=== PATIENT | male | born 1955 | race Caucasian/White ===

== ENCOUNTER 2017-07-02 19:55 | Emergency (ER) | payer OTHER ==
[~2017-07-02 19:55] MED LIST: AMOX500 PO; ASPI325; ASPI81EC; Amoxicillin875 MG PO; BENA10; BENA20 PO; CEPH500 PO; CLIN300 PO; CLON.1 PO; HYDACE10B PO; HYDACE5 PO; HYDCHL12.5 PO; LISI20 PO; LISI5 PO; METO50; PENVK500 PO; POTCHL20ER PO; PROACE100 PO; PROC10 PO; Pepcid40 MG PO; RXHYD5325 PO; RXHYDACE PO; RXPROACE PO; SERT100; Veetids 500500 MG PO; ZESTORETIC 20-121 EA; Zofran Odt4 MG SL
== END 2017-07-02 21:22 | disposition left against medical advice (07) ==
LOC: ER 19:55
DX: Z53.21 Procedure and treatment not carried out due to patient leaving prior to being seen by health care provider (principal)

== ENCOUNTER 2017-07-05 22:51 | Emergency (ER) | payer OTHER ==
[~2017-07-05] VITALS: Ht 182.9 cm; Wt 122.5 kg
[2017-07-05] MEDS ORDERED: ACET325 PO (23:00)
[2017-07-06] MEDS ORDERED: IBUP600 PO (21:21)
== END 2017-07-05 23:37 | disposition home or self-care (01) ==
LOC: ER 22:51
DX: K08.89 Other specified disorders of teeth and supporting structures (principal); Z88.5 Allergy status to narcotic agent; Z88.2 Allergy status to sulfonamides; Z88.1 Allergy status to other antibiotic agents; Z79.899 Other long term (current) drug therapy; I10 Essential (primary) hypertension; K21.9 Gastro-esophageal reflux disease without esophagitis; Z87.891 Personal history of nicotine dependence
CPT/HCPCS: 64400; 99282

== ENCOUNTER 2017-07-06 18:31 | Emergency (ER) | payer OTHER ==
[~2017-07-06] VITALS: Ht 182.9 cm; Wt 122.5 kg
[~2017-07-06 18:31] MED LIST changes: +ACET325 PO
[2017-07-06 19:51] LABS: U Amphetamine Screen DETECTED; U Barbituate Screen Not Detected; U Benzodiazapine Screen Not Detected; U Buprenorphine Screen Not Detected; U Cannabinoids Screen DETECTED; U Cocaine Screen Not Detected; U Methadone Screen Not Detected; U Methamphetamine Screen DETECTED; U Opiates Screen Not Detected; U Oxycodone Screen Not Detected; U Phencyclidine Screen Not Detected; U Propoxyphene Screen Not Detected
[2017-07-06 20:04] LABS: BASOPHILS ABSOLUTE AUTO 0.01 K/mm3 (0.00-0.23); BASOPHILS PERCENT AUTO 0 % (0-2); EOSINOPHILS ABSOLUTE AUTO 0.01 K/mm3 (0.00-0.68); EOSINOPHILS PERCENT AUTO 0 % (0-6); Hematocrit 46.3 % (37.0-53.0); Hemoglobin 16.5 g/dL (13.5-17.5); IMMATURE GRAN ABSOLUTE AUTO 0.03 K/mm3 (0.00-0.10); IMMATURE GRAN PERCENT AUTO 0 % (0-1); LYMPHOCYTES ABSOLUTE AUTO 1.19 K/mm3 (0.84-5.20); LYMPHOCYTES PERCENT AUTO 12 % (21-46); MONOCYTES ABSOLUTE AUTO 0.63 K/mm3 (0.16-1.47); MONOCYTES PERCENT AUTO 6 % (4-13); Mean Corpuscular HGB 34.2 pg (26.0-34.0); Mean Corpuscular HGB Conc 35.6 g/dL (31.5-36.5); Mean Corpuscular Volume 96 fL (80-100); Mean Platelet Volume 10.4 fL (9.1-12.4); NEUTROPHILS ABSOLUTE AUTO 8.41 K/mm3 (1.96-9.15); NEUTROPHILS PERCENT AUTO 82 % (41-73); Platelet Count 292 K/mm3 (150-400); RDW Coefficient Variation 13.9 % (11.7-14.2); RDW Standard Deviation 48.6 fL (35.1-46.3); Red Blood Cell Count 4.83 M/mm3 (4.30-5.90); White Blood Cell Count 10.28 K/mm3 (4.00-11.30)
[2017-07-06 20:26] LABS: Troponin I <0.015 ng/mL (0.000-0.040)
[2017-07-06 20:27] LABS: Alanine Aminotransfer (ALT/SGP 19 U/L (12-78); Albumin, Blood 3.4 g/dL (3.4-5.0); Albumin/Globulin Ratio 0.7 (0.8-1.8); Alk Phos 64 U/L (50-136); Anion Gap 14 mmol/L (6-16); Aspartate Aminotrans (AST/SGOT 29 U/L (12-37); Bilirubin, Total 0.2 mg/dL (0.1-1.0); Blood Urea Nitrogen 15 mg/dL (8-24); Bun/Creatinine Ratio 12.4 (12.0-20.0); CO2, Blood 19 mmol/L (21-32); Chloride, Blood 103 mmol/L (98-108); Creatinine, Blood 1.21 mg/dL (0.60-1.20); Globulin, Blood 4.7 g/dL (2.2-4.0); Glomerular Filtration Rate >60 (60-); Glucose, Blood 116 mg/dL (70-99); Potassium, Blood 3.2 mmol/L (3.5-5.5); Sodium, Blood 136 mmol/L (136-145); Total Protein, Blood 8.1 g/dL (6.4-8.2)
[2017-07-06 20:44] LABS: Base Excess Venous -1.7 mmol/L; Bicarbonate Venous 23.5 mmol/L (24.0-30.0); PCO2 Venous 34.4 mmHg (38-42); PO2 Venous 120 mmHg (38-42); pH Blood Venous 7.43 (7.34-7.37)
[2017-07-06] MEDS ORDERED: IBUP600 PO (21:21)
== END 2017-07-06 21:40 | disposition home or self-care (01) ==
LOC: ER 18:31
PROVIDERS: Emergency Medicine
DX: R11.2 Nausea with vomiting, unspecified (principal); K04.7 Periapical abscess without sinus; F15.10 Other stimulant abuse, uncomplicated; F12.10 Cannabis abuse, uncomplicated; I10 Essential (primary) hypertension; Z88.5 Allergy status to narcotic agent; Z88.2 Allergy status to sulfonamides; Z88.1 Allergy status to other antibiotic agents; Z79.899 Other long term (current) drug therapy
CPT/HCPCS: 36415; 71046; 80053; 82803; 84484; 85025; 93005; 93010; 96365; 96375; 99284; J0696; J1200; J2765; J7030

== ENCOUNTER 2017-08-10 12:51 | Emergency (ER) | payer OTHER ==
[~2017-08-10] VITALS: Ht 177.8 cm; Wt 122.5 kg
[~2017-08-10 12:51] MED LIST changes: +IBUP600 PO
[2017-08-10] MEDS ORDERED: NYST237S MT (14:12)
[2017-08-10] MEDS ORDERED: Amoxicillin500 MG PO (14:12)
[2017-08-10] MEDS ORDERED: NAPR550 PO (14:12)
== END 2017-08-10 14:15 | disposition home or self-care (01) ==
LOC: ER 12:51
DX: K08.89 Other specified disorders of teeth and supporting structures (principal); K02.9 Dental caries, unspecified; I10 Essential (primary) hypertension; Z88.5 Allergy status to narcotic agent; Z79.899 Other long term (current) drug therapy; Z79.2 Long term (current) use of antibiotics; Z87.891 Personal history of nicotine dependence
CPT/HCPCS: 99283

== ENCOUNTER 2021-06-14 20:54 | Inpatient (IN) | payer MEDICARE, OTHER ==
[~2021-06-14] VITALS: Ht 182.9 cm; Wt 127.8 kg
[~2021-06-14 20:54] MED LIST changes: +Amoxicillin500 MG PO; +MIRALAX17 GM PO; +NAPR550 PO; +NYST237S MT; +Norco 5-325 Ta1 EACH PO
[2021-06-14 21:30] LABS: BASOPHILS ABSOLUTE AUTO 0.06 K/mm3 (0.00-0.23); BASOPHILS PERCENT AUTO 1 % (0-2); EOSINOPHILS ABSOLUTE AUTO 0.23 K/mm3 (0.00-0.68); EOSINOPHILS PERCENT AUTO 5 % (0-6); Hematocrit 43.8 % (37.0-53.0); Hemoglobin 14.9 g/dL (13.5-17.5); IMMATURE GRAN ABSOLUTE AUTO 0.02 K/mm3 (0.00-0.10); IMMATURE GRAN PERCENT AUTO 0 % (0-1); LYMPHOCYTES ABSOLUTE AUTO 2.25 K/mm3 (0.84-5.20); LYMPHOCYTES PERCENT AUTO 44 % (21-46); MONOCYTES ABSOLUTE AUTO 0.41 K/mm3 (0.16-1.47); MONOCYTES PERCENT AUTO 8 % (4-13); Mean Corpuscular HGB 35.3 pg (26.0-34.0); Mean Corpuscular Volume 104 fL (80-100); Mean Platelet Volume 9.8 fL (9.1-12.4); NEUTROPHILS ABSOLUTE AUTO 2.13 K/mm3 (1.96-9.15); NEUTROPHILS PERCENT AUTO 42 % (41-73); Platelet Count 212 K/mm3 (150-400); RDW Coefficient Variation 14.3 % (11.7-14.2); RDW Standard Deviation 54.5 fL (35.1-46.3); Red Blood Cell Count 4.22 M/mm3 (4.30-5.90)
[2021-06-14 21:50] LABS: Alanine Aminotransfer (ALT/SGP 136 U/L (12-78); Albumin, Blood 2.9 g/dL (3.4-5.0); Albumin/Globulin Ratio 0.6 (0.8-1.8); Alk Phos 79 U/L (50-136); Anion Gap 10 mmol/L (6-16); Aspartate Aminotrans (AST/SGOT 251 U/L (12-37); Bilirubin, Total 0.4 mg/dL (0.1-1.0); Blood Urea Nitrogen 13 mg/dL (8-24); Bun/Creatinine Ratio 14.2 (12.0-20.0); CO2, Blood 25 mmol/L (21-32); Calcium, Blood 8.3 mg/dL (8.5-10.1); Chloride, Blood 106 mmol/L (98-108); Creatinine, Blood 0.92 mg/dL (0.60-1.20); Globulin, Blood 4.5 g/dL (2.2-4.0); Glomerular Filtration Rate >60 (60-); Glucose, Blood 121 mg/dL (70-99); Potassium, Blood 3.7 mmol/L (3.5-5.5); Sodium, Blood 141 mmol/L (136-145); Total Protein, Blood 7.4 g/dL (6.4-8.2); Troponin I <0.015 ng/mL (0.000-0.040)
[2021-06-14 21:51] LABS: Base Excess Venous 0.3 mmol/L; Bicarbonate Venous 24.2 mmol/L (24.0-30.0); PO2 Venous 199 mmHg (38-42); pH Blood Venous 7.35 (7.34-7.37)
[2021-06-14 22:26] LABS: Influenza A, PCR NEGATIVE (NEGATIVE); Influenza B, PCR NEGATIVE (NEGATIVE); Resp Syncytial Virus, PCR NEGATIVE (NEGATIVE); SARS-Cov-2 (COVID-19) PCR, MMC NEGATIVE (NEGATIVE)
--- NOTE | 2021-06-15 03:42 | NUR ---
0300 PT ARRIVED ON UNIT FROM ER VIA STRETCHER, AMBULATED TO BED, ORIENTED TO ROOM AND CALL PRESSLEY SYSTEM, ADMISSION HISTORY LIMITED PT POOR HISTORIAN, DOES NOT KNOW WHAT MEDICATIONS HE TAKES EXCEPT THAT HE DOESNT USUALLY TAKE HIS FUROSIMIDE "BECAUSE IT MAKES ME PEE EVERY 5 MINUTES." DOES NOT KNOW DOSAGE OR WHEN LAST DOSE WAS. TELE SHOWS SR/ST, VOIDING IN URINAL AT BEDSIDE, C/O FEELING ANXIOUS, LAST TIME HE DRANK ETOH WAS JUST PRIOR TO ARRIVAL. BED ALARM ACTIVATED, BED LOCKED AND LOW, WILL CONTINUE TO MONITOR. JOSELIN BARNEY
[2021-06-15 04:45] LABS: BASOPHILS ABSOLUTE AUTO 0.03 K/mm3 (0.00-0.23); BASOPHILS PERCENT AUTO 1 % (0-2); EOSINOPHILS ABSOLUTE AUTO 0.05 K/mm3 (0.00-0.68); EOSINOPHILS PERCENT AUTO 1 % (0-6); Hematocrit 43.7 % (37.0-53.0); Hemoglobin 14.6 g/dL (13.5-17.5); IMMATURE GRAN ABSOLUTE AUTO 0.03 K/mm3 (0.00-0.10); IMMATURE GRAN PERCENT AUTO 1 % (0-1); LYMPHOCYTES ABSOLUTE AUTO 1.07 K/mm3 (0.84-5.20); LYMPHOCYTES PERCENT AUTO 24 % (21-46); MONOCYTES ABSOLUTE AUTO 0.47 K/mm3 (0.16-1.47); MONOCYTES PERCENT AUTO 10 % (4-13); Mean Corpuscular HGB 35.1 pg (26.0-34.0); Mean Corpuscular HGB Conc 33.4 g/dL (31.5-36.5); Mean Corpuscular Volume 105 fL (80-100); Mean Platelet Volume 10.1 fL (9.1-12.4); NEUTROPHILS ABSOLUTE AUTO 2.91 K/mm3 (1.96-9.15); NEUTROPHILS PERCENT AUTO 64 % (41-73); Platelet Count 173 K/mm3 (150-400); RDW Coefficient Variation 14.3 % (11.7-14.2); RDW Standard Deviation 55.8 fL (35.1-46.3); Red Blood Cell Count 4.16 M/mm3 (4.30-5.90); White Blood Cell Count 4.56 K/mm3 (4.00-11.30)
[2021-06-15 04:46] LABS: Alanine Aminotransfer (ALT/SGP 150 U/L (12-78); Albumin, Blood 3.1 g/dL (3.4-5.0); Albumin/Globulin Ratio 0.7 (0.8-1.8); Alk Phos 93 U/L (50-136); Anion Gap 12 mmol/L (6-16); Aspartate Aminotrans (AST/SGOT 258 U/L (12-37); Bilirubin, Total 0.4 mg/dL (0.1-1.0); Blood Urea Nitrogen 15 mg/dL (8-24); Bun/Creatinine Ratio 16.4 (12.0-20.0); CO2, Blood 23 mmol/L (21-32); Calcium, Blood 8.7 mg/dL (8.5-10.1); Chloride, Blood 105 mmol/L (98-108); Creatinine, Blood 0.91 mg/dL (0.60-1.20); Globulin, Blood 4.4 g/dL (2.2-4.0); Glomerular Filtration Rate >60 (60-); Glucose, Blood 107 mg/dL (70-99); Potassium, Blood 4.4 mmol/L (3.5-5.5); Sodium, Blood 140 mmol/L (136-145); Total Protein, Blood 7.5 g/dL (6.4-8.2)
--- NOTE | 2021-06-15 05:16 | NUR ---
SHIFT SUMMARY: PT RESTED QUIETLY AFTER ARRIVAL ON UNIT, CIWA SCORE 4, SR ON TELE. PT VERY ANXIOUS WHEN AWAKE, STATES HE IS AFRAID OF WITHDRAWL, REASSURED HIM THAT WE HAVE MEDICATION TO PREVENT SEVERE SYMPTOMS. DENIES PAIN OR DISCOMFORT BUT STATES HE "WANTS A DRINK BAD." LAST ALCOHOL INTAKE JUST PRIOR TO ARRIVAL. DENIES SOB, 02 SATS >98% ON 2L, DOES NOT USE O2 AT HOME, IV FLUIDS INFUSING, FIRST OF 2 BAGS INFUSING. BED LOCKED AND LOW, CALL PRESSLEY IN REACH. JOSELIN BARNEY
--- NOTE | 2021-06-15 14:09 | NUR ---
CARE NOTE PT ALERT AND ORIENTED X4. SPO2 94% VIA 1 LNC. PT DESATURATES TO 88% WHEN SLEEPING THEREFOR 1L APPLIED. PT HAS BEEN SLEEPING FOR MAJORITY OF SHIFT, HE WAKES EASILY TO VERBAL STIMULI BUT HAS BEEN LETHARGIC SINCE 25MG DOSE OF LIBRIUM GIVEN THIS AM. PT REPORTED FEELINGS OF ANXIOUSNESS THIS AM BUT HAS SINCE BEEN SLEEPING. HE IS EATING AND DRINKING VERY LITTLE. PT HAS DENIED PAIN, NAUSEA, CHEST PAIN, HAS BEEN AFEBRILE AND VITAL SIGNS ARE STABLE. SIEZURE PRECAUTIONS BEING UTILIZED FOR PATIENT. WHEN DR. BANGURA IN ROOM THIS AM PT REPORTED THAT HE PLANS TO DRINK AT HOME ONCE DISCHARGED. DR. BANGURA OFFERED PATIENT ADAPT SERVICES AND PT DENIED THE NEED FOR ASSISTANCE TO WITHDRAWL FROM ALCOHOL. PT NOW APPEARS TO BE SLEEPING, HE USED BEDSIDE URINAL APPROX. [id number]. NO OTHER ACUTE CHANGES NOTED. WILL CONTINUE TO MONITOR. CALL LIGHT IN REACH. BED IN LOW.
--- NOTE | 2021-06-15 17:33 | NUR ---
Sat up in chair after walking out to hallway and then to bathroom. One person standy by assist with gait belt and walker. ATe a very small amount of dinner, then c/o nausea. CIWA is 4-5. Given zofran and 25 mg librium. Assisted back to bed.
--- NOTE | 2021-06-15 18:02 | NUR ---
SHIFT SUMMARY PT ALERT AND ORIENTED X 4. BP WAS ELEVATED AT 1600 VITALS AND WAS TREATED PER EMAR ORDERS. PT CONTINUED TO SLEEP FOR MAJORITY OF SHIFT. CHARGE NURSE AND DR. WILLEM JACOB SPOKE AGAIN WITH PT ABOUT PLANS FOR TREATMENT, WITHDRAWLS, OR PLANS TO GO HOME TO DRINK DUE TO LACK OF MEDICAL REASON FOR HOSPITAL ADMITTANCE. PT REPORTED POTENTIAL DESIRE FOR TREATMENT AND WISHES TO STAY DUE TO "STILL FEELING SICK." CHARGE NURSE GONSALO ENCOURAGED PT TO AMBULATE THIS EVENING AROUNG UNIT, PT AMBULATED WITH WALKER, GAIT BELT AND ASSISTANCE FROM GONSALO OLIVERA AND RADHAMES CANO. PT NOW SLEEPING, SBP TRENDED DOWN SLIGHTLY FROM 165 TO 163, DR. JACOB WAS IN ROOM DURING BLOOD PRESSURE CHECKS. PT ALSO REPORTED NOT WANTING TO GO HOME DUE TO HIM BEING PRIMARY CAREGIVER FOR WHO IS WHEELCHAIR BOUND. NO OTHER ACUTE CHANGES NOTED. PT NOW APPEARS TO BE SLEEPING, CALL LIGHT IN REACH. WILL CONTINUE TO MONITOR.
--- NOTE | 2021-06-16 05:20 | NUR ---
SHIFT SUMMARY: PT INTERMITTENTLY ANXIOUS, NOW TALKING ABOUT LEAVING BECAUSE HE NEEDS TO TAKE CARE OF HIS , THOUGH HE DOES CONFIRM NEIGHBORS AND HER SON ARE LOOKING IN ON HER. ORIENTED, BUT STATING HE WANTS "A DRINK" REFERING TO ALCOHOL. GIVEN PRN LIBRIUM AND WITHIN A HALF HOUR OF ADMINISTRATION PT IS SLEEPING. ORIENTED X4, CIWA BETWEEN 4-5. CONTINENT AND SBA TO BATHROOM TO VOID. ANXIOUS ABOUT GETTING HOME TODAY AFTER D/C DUE TO WINTER WEATHER. BED LOCKED AND LOW, CALL PRESSLEY IN REACH. JOSELIN BARNEY
[2021-06-16] MEDS ORDERED: FAMO40 PO (12:38)
--- NOTE | 2021-06-16 13:19 | NUR ---
PT DISCHARGE PT PROVIDED WITH DISCHARGE INSTRUCTIONS PER PHYSICIAN. PT HAD EDUCATION REGARDING CHF, PT STATES THIS IS A NEW DX. INFORMED THE PHYSICIAN OF THIS. PT DOES NOT HAVE A CHF DIAGNOSIS AND THIS RN WAS INFORMED TO INFORM THE PT AND REMOVE THE EDUCATION FROM THE DISCHARGE PAPERWORK. CAB CALLED FOR PT BY [facility]OR WALKER. NO NEW MEDICATIONS SENT TO [facility]. IV REMOVED. PT BROUGHT TO [place] BY CANCER GENETICS ASSISTANT WITH WHEELCHAIR.
== END 2021-06-16 13:15 | disposition home or self-care (01) | DRG 189 ==
LOC: ER 20:54 → PCU 06-15 01:37
PROVIDERS: Family Medicine; Student in an Organized Health Care Education/Training Program; ADMIT Internal Medicine
PROC: HZ2ZZZZ Detoxification Services for Substance Abuse Treatment (ICD-10-PCS; principal; 2021-06-15)
DX: J96.01 Acute respiratory failure with hypoxia (principal); F10.239 Alcohol dependence with withdrawal, unspecified; E66.2 Morbid (severe) obesity with alveolar hypoventilation; G47.33 Obstructive sleep apnea (adult) (pediatric); Z20.822 Contact with and (suspected) exposure to COVID-19; K76.0 Fatty (change of) liver, not elsewhere classified; K21.9 Gastro-esophageal reflux disease without esophagitis; I10 Essential (primary) hypertension; F41.9 Anxiety disorder, unspecified; H91.91 Unspecified hearing loss, right ear; Z68.36 Body mass index [BMI] 36.0-36.9, adult; I25.2 Old myocardial infarction; Z90.49 Acquired absence of other specified parts of digestive tract; Z98.890 Other specified postprocedural states; Z88.6 Allergy status to analgesic agent
CPT/HCPCS: 0241U; 36415; 71045; 71260; 80053; 82803; 83880; 84484; 85025; 85379; 93005; 93010; 94644; 97161; 99285-25; A9270; J0360; J1650; J7120; J7512; Q9967

== ENCOUNTER 2022-07-24 17:34 | Emergency (ER) | payer MEDICARE, OTHER ==
[~2022-07-24] VITALS: Ht 182.9 cm; Wt 122.5 kg
[~2022-07-24 17:34] MED LIST changes: +FAMO40 PO
[2022-07-24 18:20] LABS: BASOPHILS ABSOLUTE AUTO 0.06 K/mm3 (0.00-0.23); BASOPHILS PERCENT AUTO 1 % (0-2); EOSINOPHILS ABSOLUTE AUTO 0.08 K/mm3 (0.00-0.68); EOSINOPHILS PERCENT AUTO 1 % (0-6); Hematocrit 45.2 % (37.0-53.0); Hemoglobin 16.2 g/dL (13.5-17.5); IMMATURE GRAN ABSOLUTE AUTO 0.04 K/mm3 (0.00-0.10); IMMATURE GRAN PERCENT AUTO 1 % (0-1); LYMPHOCYTES ABSOLUTE AUTO 1.85 K/mm3 (0.84-5.20); LYMPHOCYTES PERCENT AUTO 31 % (21-46); MONOCYTES ABSOLUTE AUTO 0.52 K/mm3 (0.16-1.47); MONOCYTES PERCENT AUTO 9 % (4-13); Mean Corpuscular HGB 34.6 pg (26.0-34.0); Mean Corpuscular HGB Conc 35.8 g/dL (31.5-36.5); Mean Corpuscular Volume 97 fL (80-100); Mean Platelet Volume 9.6 fL (9.1-12.4); NEUTROPHILS ABSOLUTE AUTO 3.34 K/mm3 (1.96-9.15); NEUTROPHILS PERCENT AUTO 57 % (41-73); Platelet Count 233 K/mm3 (150-400); RDW Coefficient Variation 13.2 % (11.7-14.2); RDW Standard Deviation 46.6 fL (35.1-46.3); Red Blood Cell Count 4.68 M/mm3 (4.30-5.90); White Blood Cell Count 5.89 K/mm3 (4.00-11.30)
[2022-07-24 18:54] LABS: Albumin, Blood 3.3 g/dL (3.4-5.0); Albumin/Globulin Ratio 0.7 (0.8-1.8); Bilirubin, Total 0.6 mg/dL (0.1-1.0); Bun/Creatinine Ratio 16.7 (12.0-20.0); Calcium, Blood 8.6 mg/dL (8.5-10.1); Creatinine, Blood 1.02 mg/dL (0.60-1.20); Globulin, Blood 4.5 g/dL (2.2-4.0); Potassium, Blood 3.7 mmol/L (3.5-5.5); Total Protein, Blood 7.8 g/dL (6.4-8.2)
== END 2022-07-24 19:38 | disposition home or self-care (01) ==
LOC: ER 17:34
PROVIDERS: Student in an Organized Health Care Education/Training Program
DX: S70.362A Insect bite (nonvenomous), left thigh, initial encounter (principal); W57.XXXA Bitten or stung by nonvenomous insect and other nonvenomous arthropods, initial encounter; I10 Essential (primary) hypertension; Z79.899 Other long term (current) drug therapy; Z88.5 Allergy status to narcotic agent
CPT/HCPCS: 80053; 85025; 96372; 99283-25; J1885

== ENCOUNTER 2022-08-12 | Emergency (ER) | payer MEDICARE, OTHER ==
[~2022-08-12] VITALS: Ht 180.3 cm; Wt 122.5 kg
[2022-08-12] MEDS ORDERED: FURO20 PO (00:28)
[2022-08-12] MEDS ORDERED: POTCHL20ER PO (00:28)
[2022-08-12 00:37] LABS: BASOPHILS ABSOLUTE AUTO 0.05 K/mm3 (0.00-0.23); BASOPHILS PERCENT AUTO 1 % (0-2); EOSINOPHILS ABSOLUTE AUTO 0.07 K/mm3 (0.00-0.68); EOSINOPHILS PERCENT AUTO 1 % (0-6); Hematocrit 41.3 % (37.0-53.0); Hemoglobin 14.8 g/dL (13.5-17.5); IMMATURE GRAN ABSOLUTE AUTO 0.02 K/mm3 (0.00-0.10); IMMATURE GRAN PERCENT AUTO 0 % (0-1); LYMPHOCYTES PERCENT AUTO 23 % (21-46); MONOCYTES ABSOLUTE AUTO 0.37 K/mm3 (0.16-1.47); MONOCYTES PERCENT AUTO 6 % (4-13); Mean Corpuscular HGB 34.2 pg (26.0-34.0); Mean Corpuscular HGB Conc 35.8 g/dL (31.5-36.5); Mean Corpuscular Volume 95 fL (80-100); Mean Platelet Volume 8.9 fL (9.1-12.4); NEUTROPHILS ABSOLUTE AUTO 4.43 K/mm3 (1.96-9.15); NEUTROPHILS PERCENT AUTO 69 % (41-73); Platelet Count 234 K/mm3 (150-400); RDW Coefficient Variation 13.2 % (11.7-14.2); RDW Standard Deviation 46.7 fL (35.1-46.3); Red Blood Cell Count 4.33 M/mm3 (4.30-5.90); White Blood Cell Count 6.44 K/mm3 (4.00-11.30)
[2022-08-12 01:17] LABS: Albumin, Blood 2.9 g/dL (3.4-5.0); Albumin/Globulin Ratio 0.6 (0.8-1.8); Bilirubin, Total 0.6 mg/dL (0.1-1.0); Bun/Creatinine Ratio 23.4 (12.0-20.0); Calcium, Blood 8.3 mg/dL (8.5-10.1); Creatinine, Blood 0.81 mg/dL (0.60-1.20); Globulin, Blood 4.6 g/dL (2.2-4.0); Potassium, Blood 3.6 mmol/L (3.5-5.5); Total Protein, Blood 7.5 g/dL (6.4-8.2)
[2022-08-12 01:54] LABS: Prothrombin Time Results 10.5 Sec (9.7-11.5)
== END 2022-08-12 03:25 | disposition home or self-care (01) ==
LOC: ER
PROVIDERS: Emergency Medicine
DX: M79.10 Myalgia, unspecified site (principal); F10.20 Alcohol dependence, uncomplicated; I10 Essential (primary) hypertension; Z88.5 Allergy status to narcotic agent; Z79.899 Other long term (current) drug therapy
CPT/HCPCS: 36415; 80053; 83690; 84484; 85025; 85610; 93005; 93010; J1885; J2405

== ENCOUNTER → 2024-03-24 | Outpatient (CLI) | payer MEDICARE, OTHER ==
[~2024-03-24] MED LIST changes: +FURO20 PO
[2024-03-24 19:10] LABS: BASOPHILS ABSOLUTE AUTO 0.06 K/mm3 (0.00-0.23); BASOPHILS PERCENT AUTO 1 % (0-2); EOSINOPHILS ABSOLUTE AUTO 0.45 K/mm3 (0.00-0.68); EOSINOPHILS PERCENT AUTO 8 % (0-6); Hematocrit 43.7 % (37.0-53.0); Hemoglobin 15.7 g/dL (13.5-17.5); IMMATURE GRAN ABSOLUTE AUTO 0.02 K/mm3 (0.00-0.10); IMMATURE GRAN PERCENT AUTO 0 % (0-1); LYMPHOCYTES ABSOLUTE AUTO 1.57 K/mm3 (0.84-5.20); LYMPHOCYTES PERCENT AUTO 28 % (21-46); MONOCYTES ABSOLUTE AUTO 0.33 K/mm3 (0.16-1.47); MONOCYTES PERCENT AUTO 6 % (4-13); Mean Corpuscular HGB 34.3 pg (26.0-34.0); Mean Corpuscular HGB Conc 35.9 g/dL (31.5-36.5); Mean Corpuscular Volume 95 fL (80-100); Mean Platelet Volume 10.8 fL (9.1-12.4); NEUTROPHILS PERCENT AUTO 56 % (41-73); Platelet Count 197 K/mm3 (150-400); RDW Coefficient Variation 12.7 % (11.7-14.2); RDW Standard Deviation 44.9 fL (35.1-46.3); Red Blood Cell Count 4.58 M/mm3 (4.30-5.90); White Blood Cell Count 5.53 K/mm3 (4.00-11.30)
[2024-03-24 20:30] LABS: Albumin, Blood 3.4 g/dL (3.4-5.0); Albumin/Globulin Ratio 0.9 (0.8-1.8); Bilirubin, Total 0.3 mg/dL (0.1-1.0); Bun/Creatinine Ratio 16.4 (12.0-20.0); Calcium, Blood 9.7 mg/dL (8.5-10.1); Creatinine, Blood 0.91 mg/dL (0.60-1.20); Globulin, Blood 3.8 g/dL (2.2-4.0); Percent Saturation 29.2 % (20.0-50.0); Total Protein, Blood 7.2 g/dL (6.4-8.2)
[2024-03-28 10:29] LABS: HEPATITIS B SURFACE ANTIBODY <3.10 IU/L
[2024-03-28 11:29] LABS: HIV 1,2 COMBO ANTIGEN/ANTIBODY Negative (Negative)
[2024-03-28 11:52] LABS: HEPATITIS A ANTIBODIES, TOTAL Positive (Negative)
[2024-03-28 11:53] LABS: HBV CORE ANTIBODIES,TOTAL Negative (Negative)
[2024-03-28 12:00] LABS: HEPATITIS B SURFACE ANTIGEN Negative (Negative)
[2024-03-28 14:55] LABS: HCV QNT BY NAAT (IU/ML) 36100 IU/mL; HCV QNT BY NAAT (LOG IU/ML) 4.56; HCV QNT BY NAAT INTERP Detected (Not Detected)
== END ==
LOC: LAB SHORT 18:27 → LAB 18:27
PROVIDERS: Nurse Practitioner Family
DX: B19.20 Unspecified viral hepatitis C without hepatic coma (principal); I10 Essential (primary) hypertension
CPT/HCPCS: 80053; 82728; 83540; 83550; 85025; 86592; 86704; 86708; 87340; 87389; 87522